=== PATIENT | female | born 1940 | race Caucasian/White ===

== ENCOUNTER 2016-05-10 06:08 | Day surgery (SDC) | payer MEDICARE ==
[~2016-05-10] VITALS: Ht 157.5 cm; Wt 55.5 kg
[~2016-05-10 06:08] MED LIST: BIOTIN5 MG PO; BUSPAR5 MG PO; BYSTOLIC5 MG PO; CALCIUM 500 + D1 TAB PO; DIOVAN HCT 320/1 TA2 PO; EFFEXOR75 MG PO; MAG-OX 400 MG400 MG PO; METAMUCIL1042 GM PO; OMEGA Q PLUS 100; POTASSIUM99 M1 PO; VITAMIN C500 MG/51 PO; [UNRECOGNIZED DRUG - OTHER]
[2016-05-10] MEDS ORDERED: BAYER CHEWABLE81 MG PO (07:19)
[2016-05-10] MEDS ORDERED: ULTRAM50 MG PO (07:20)
[2016-05-10 07:23] LABS: BASOPHILS 0.8 % (0.0-2.0); EOSINOPHILS 1.6 % (0-7); HEMATOCRIT 40.9 % (36.0-48.0); HEMOGLOBIN 14.2 g/dL (12-16); IMMATURE GRANULOCYTES 0.5 % (0-5); LYMPHOCYTES 21.6 % (15-50); MCHC 34.7 g/dL (31.0-37.0); MCV 95.1 fL (80.0-100.0); MEAN PLATELET VOLUME 10.6 fL (7.4-10.4); MONOCYTES 6.5 % (2-11); RDW 13.2 % (11.5-14.5); WBC 6.3 10x3/uL (4.8-10.8)
[2016-05-10 07:24] VITALS: BP 110/63; Ht 157.5 cm; Wt 55.5 kg
[2016-05-10 07:25] LABS: PLATELET COUNT 332 10x3/uL (130-400)
[2016-05-10 08:27] LABS: ANION GAP 15.5 mmol/L (8-16); CALCIUM 9.3 mg/dL (8.5-10.1); CARBON DIOXIDE 25.3 mmol/L (21.0-32.0); CREATININE - SERUM 0.9 mg/dL (0.6-1.3); POTASSIUM - SERUM 3.8 mmol/L (3.5-5.1)
--- NOTE | 2016-05-10 13:50 | NUR ---
1020 IV DC WITH CATHER TIP INTACT
--- NOTE | 2016-05-17 13:07 | OP ---
PATIENT NAME: SIENA DAI MEDICAL RECORD: [id number] :42 LOCATION:D.OPS ADMISSION DATE: SURGEON: QUIQUE CARRERA MD DATE OF OPERATION: 05/10/2016 PREOPERATIVE DIAGNOSIS: History of benign colon polyps with last colonoscopy over 5 years ago. POSTOPERATIVE DIAGNOSES: History of benign colon polyps with last colonoscopy over 5 years ago with normal examination today other than sigmoid diverticulosis. OPERATION PERFORMED: Colonoscopy to the cecum. SURGEON: Quique Carrera MD ANESTHESIA: TIVA per [employer]. REFERRING PHYSICIAN: Dr. Saavedra. PREOPERATIVE NOTE: Ms. Dai is a 75-year-old white female patient with history of benign colon polyps with a polyp removed at colonoscopy just over 5 years ago. She has no symptoms other than some constipation, but is returned to the GI lab today as an outpatient for a followup for screening colonoscopy. She has completed that 2-day MiraLax bowel prep. Under TIVA and lateral decubitus position, a digital rectal exam was performed. This was normal. There was no evidence of perianal sepsis or inflammation. No hemorrhoidal thrombosis or masses. The Olympus colonoscope was introduced and advanced through the colon, difficulty advancing the colon through the sigmoid due to spasm was at least partially alleviated by administration of 0.5 mg of glucagon intravenously. The patient was noted to have moderately severe sigmoid diverticulosis. The scope was advanced all the way to the cecum and slowly withdrawn without seeing any other lesions. The patient tolerated the procedure and TIVA well and was awakened and returned to the outpatient department. Ms. dai will be discharged later this morning. She will follow up in routine manner with Dr. Saavedra. She need not return to see me in the office unless there is a problem or concern. No biopsies were taken today. She will continue her home medications and her usual diet, which is a high fiber diet. I would recommend that she take a fiber supplement such as Benefiber 2-3 teaspoons daily. TRANSINT:[id number] Voice Confirmation ID: [id number] DOCUMENT ID: [id number] QUIQUE CARRERA MD at 1307 CC: PÉREZ SAAVEDRA MD [id number] DICTATION DATE: 05/10/16 0903 [facility]AT [place]: 05/10/16 0945 [facility] 05/10/16 [place] [id number] [place] [id number]
== END 2016-05-10 10:45 | disposition home or self-care (01) ==
LOC: D.OPS 06:08
PROVIDERS: Anesthesiology
DX: Z12.11 Encounter for screening for malignant neoplasm of colon (principal); K57.30 Diverticulosis of large intestine without perforation or abscess without bleeding; K59.00 Constipation, unspecified; Z86.010 Personal history of colon polyps

== ENCOUNTER 2017-11-06 13:48 | Emergency (ER) | payer MEDICARE ==
[~2017-11-06] VITALS: Ht 157.5 cm; Wt 50.0 kg
[~2017-11-06 13:48] MED LIST changes: +BAYER CHEWABLE81 MG PO; +ULTRAM50 MG PO
[2017-11-06 13:54] VITALS: Ht 157.5 cm; Wt 50.0 kg
[2017-11-06 14:17] LABS: BASOPHILS 0.5 % (0-2); EOSINOPHILS 0.5 % (0-7); HEMATOCRIT 39.4 % (36.0-48.0); HEMOGLOBIN 13.8 g/dL (12-16); IMMATURE GRANULOCYTES 0.3 % (0-5); LYMPHOCYTES 22.9 % (15-50); MCH 33.4 pg (26.0-34.0); MCV 95.4 fL (80.0-100.0); MEAN PLATELET VOLUME 9.9 fL (7.4-10.4); MONOCYTES 12.2 % (2-11); NEUTROPHILS 63.6 % (40-80); PLATELET COUNT 303 10x3/uL (130-400); RBC 4.13 10x6/uL (4.00-5.40); RDW 13.9 % (11.5-14.5); WBC 7.9 10x3/uL (4.8-10.8)
[2017-11-06 14:31] LABS: ALKALINE PHOSPHATASE 77 U/L (46-116); ALT (SGPT) 22 U/L (10-68); BILIRUBIN - TOTAL 0.42 mg/dL (0.2-1.3); CALC OSMOLALITY 269 mosm/kg (275-300); CALCIUM 8.8 mg/dL (8.5-10.1); CARBON DIOXIDE 26.9 mmol/L (21.0-32.0); CHLORIDE - SERUM 99 mmol/L (98-107); CREATININE - SERUM 0.7 mg/dL (0.6-1.3); GLUCOSE 100 mg/dL (74-106); POTASSIUM - SERUM 4.2 mmol/L (3.5-5.1); PROTEIN - SERUM 7.7 g/dL (6.4-8.2); SODIUM 135 mmol/L (136-145); UREA NITROGEN 13 mg/dL (7-18); eGFR NON AFRICAN AMERICAN 87 mL/min (90-120)
[2017-11-06 14:42] LABS: CREATINE KINASE 156 UL (21-215); TROPONIN-I < 0.017 ng/mL (0.000-0.060)
[2017-11-06 14:50] LABS: INR 1.06 (0.85-1.17); PROTIME 13.4 SECONDS (11.6-15.0)
[2017-11-06] MEDS ORDERED: NORVASC2.5 MG PO (15:11)
[2017-11-06 16:04] VITALS: BP 169/73
== END 2017-11-06 16:05 | disposition home or self-care (01) ==
LOC: D.ER 13:48
PROVIDERS: Emergency Medicine
DX: I10 Essential (primary) hypertension (principal); R11.0 Nausea; F17.200 Nicotine dependence, unspecified, uncomplicated

== ENCOUNTER 2020-09-25 10:46 | Inpatient (IN) | payer MEDICARE ==
[~2020-09-25] VITALS: Ht 157.5 cm; Wt 46.3 kg
[~2020-09-25 10:46] MED LIST changes: +NORVASC2.5 MG PO
[2020-09-25 11:32] LABS: BASOPHILS 0.4 % (0-2); EOSINOPHILS 0 % (0-7); HEMATOCRIT 47.8 % (36.0-48.0); HEMOGLOBIN 16.1 g/dL (12-16); LYMPHOCYTES 7.1 % (15-50); MCH 32.7 pg (26.0-34.0); MCHC 33.7 g/dL (31.0-37.0); MCV 96.9 fL (80.0-100.0); MONOCYTES 3.1 % (2-11); NEUTROPHILS 89.4 % (40-80); RBC 4.93 10x6/uL (4.00-5.40); RDW 14.4 % (11.5-14.5); WBC 18.9 10x3/uL (4.8-10.8)
[2020-09-25 11:35] LABS: PLATELET COUNT 462 10x3/uL (130-400)
[2020-09-25 11:50] LABS: ANION GAP 11.2 mmol/L (8-16); CALCIUM 10.3 mg/dL (8.5-10.1); CARBON DIOXIDE 34.4 mmol/L (21.0-32.0); CREATININE - SERUM 1.4 mg/dL (0.6-1.3); POTASSIUM - SERUM 4.6 mmol/L (3.5-5.1)
[2020-09-25 11:56] LABS: ALBUMIN 4.7 g/dL (3.4-5.0); BILIRUBIN - TOTAL 0.68 mg/dL (0.2-1.3); PROTEIN - SERUM 8.9 g/dL (6.4-8.2)
[2020-09-25 12:28] LABS: BILIRUBIN NEGATIVE (NEGATIVE); KETONE NEGATIVE (NEGATIVE); NITRITE NEGATIVE (NEGATIVE); UROBILINOGEN NORMAL mg/dL (< 2)
[2020-09-25 12:30] LABS: BACTERIA MODERATE HPF (NONE SEEN)
[2020-09-25] MEDS ORDERED: PROTONIX40 MG PO (18:45)
[2020-09-25] MEDS ORDERED: XANAX0.5 MG PO (18:47)
[2020-09-25 19:18] VITALS: BP 126/63; BMI 18.7
--- NOTE | 2020-09-25 19:45 | NUR ---
RECEIVED BEDSIDE REPORT. PT LAYING IN BED A&O X4. PIV TO LEFT FOREARM, PATENT AND INFUSING, NO REDNESS OR SWELLING. SCARS TO RIGHT CHEST. HYPOACTIVE BS X4 QUADS. PT ABLE TO AMBULATE WITH STAND BY ASSIST. EDUCATED ON CL AND NEEDS, VERBALIZED UNDERSTANDING. BED LOW, ALARM ON, CL IN REACH.
[2020-09-25 20:00] VITALS: BP 126/63
[2020-09-26] VITALS: BP 128/74
[2020-09-26 04:00] VITALS: BP 136/60
[2020-09-26 07:12] LABS: BASOPHILS 0.1 % (0-2); EOSINOPHILS 0.1 % (0-7); HEMATOCRIT 37.8 % (36.0-48.0); HEMOGLOBIN 12.5 g/dL (12-16); LYMPHOCYTES 7.7 % (15-50); MCH 31.8 pg (26.0-34.0); MCHC 33.1 g/dL (31.0-37.0); MCV 96.3 fL (80.0-100.0); MEAN PLATELET VOLUME 8.5 fL (7.4-10.4); MONOCYTES 4.6 % (2-11); NEUTROPHILS 87.5 % (40-80); PLATELET COUNT 333 10x3/uL (130-400); RBC 3.92 10x6/uL (4.00-5.40); RDW 14.1 % (11.5-14.5); WBC 19.4 10x3/uL (4.8-10.8)
[2020-09-26 07:26] LABS: BILIRUBIN - TOTAL 0.5 mg/dL (0.2-1.3); CALCIUM 8.1 mg/dL (8.5-10.1); CARBON DIOXIDE 30.7 mmol/L (21.0-32.0)
[2020-09-26 07:53] LABS: ALBUMIN 3.1 g/dL (3.4-5.0); ANION GAP 10.7 mmol/L (8-16); CREATININE - SERUM 0.9 mg/dL (0.6-1.3); POTASSIUM - SERUM 3.4 mmol/L (3.5-5.1); PROTEIN - SERUM 6.4 g/dL (6.4-8.2)
[2020-09-26 08:36] VITALS: BP 154/74
[2020-09-26 12:05] VITALS: BP 148/90
--- NOTE | 2020-09-26 13:31 | NUR ---
WAITING ON MEDS TO COMPLETE AM DOSES. UNABLE TO GET MEDS AT THIS TIME.
[2020-09-26 15:55] VITALS: BMI 18.6
[2020-09-26 17:04] VITALS: BP 162/92
--- NOTE | 2020-09-26 18:49 | NUR ---
TOLERATING CLD WITHOUT NAUSEA. REMAINS WITHOUT CHANGE FROM INITIAL SHIFT ASSESSMENT. CONT PLAN OF CARE
[2020-09-26 19:01] VITALS: Ht 157.5 cm; Wt 46.3 kg
[2020-09-26 20:00] VITALS: BP 165/91
--- NOTE | 2020-09-26 20:00 | NUR ---
ALERT RESTING IN BED DENIES PAIN OR NEEDS, SEE SHIFT ASSESSMENT, CALL LIGHT IN REACH
[2020-09-27] VITALS: BP 144/77
[2020-09-27 04:00] VITALS: BP 151/83
[2020-09-27 06:36] LABS: BASOPHILS 0.3 % (0-2); EOSINOPHILS 0.2 % (0-7); HEMATOCRIT 37.2 % (36.0-48.0); HEMOGLOBIN 12.2 g/dL (12-16); LYMPHOCYTES 7.4 % (15-50); MCH 31.6 pg (26.0-34.0); MCHC 32.9 g/dL (31.0-37.0); MCV 96.2 fL (80.0-100.0); MEAN PLATELET VOLUME 8.4 fL (7.4-10.4); MONOCYTES 6.4 % (2-11); NEUTROPHILS 85.7 % (40-80); PLATELET COUNT 317 10x3/uL (130-400); RBC 3.87 10x6/uL (4.00-5.40); RDW 13.9 % (11.5-14.5); WBC 17.5 10x3/uL (4.8-10.8)
[2020-09-27 07:11] LABS: ALBUMIN 2.9 g/dL (3.4-5.0); ALKALINE PHOSPHATASE 49 U/L (30-120); ALT (SGPT) 12 U/L (10-68); BILIRUBIN - TOTAL 0.44 mg/dL (0.2-1.3); CALCIUM 8.4 mg/dL (8.5-10.1); CARBON DIOXIDE 25.7 mmol/L (21.0-32.0); CHLORIDE - SERUM 99 mmol/L (98-107); GLUCOSE 91 mg/dL (74-106); POTASSIUM - SERUM 3.4 mmol/L (3.5-5.1); PROTEIN - SERUM 6.2 g/dL (6.4-8.2); SODIUM 133 mmol/L (136-145)
[2020-09-27 07:12] LABS: CALC OSMOLALITY 265 mosm/kg (275-300); CREATININE - SERUM 0.6 mg/dL (0.6-1.3); UREA NITROGEN 13 mg/dL (7-18); eGFR NON AFRICAN AMERICAN > 90 mL/min (90-120)
[2020-09-27 08:11] VITALS: BP 166/80
--- NOTE | 2020-09-27 10:39 | NUR ---
CATH PLACED FOR URINE.
--- NOTE | 2020-09-27 10:46 | NUR ---
PATIENT STATES WANTS TO LEAVE AND UNHAPPY WITH CARE SHE HAS RECEIVED AT [facility]. HAS ALREADY EATEN AND DOES NOT WANT TO STAY ANOTHER DAY TO HAVE XRAY SMALL BOWEL SERIES. CARLA EDDY MADE AWARE. STATES PATIENT CAN LEAVE IF SHE WANTS TO AND DO OUTPATIENT BUT UP TO ADMITTING. SPOKE WITH PATRICIO AGUIRRE WHO STATES SHE ISN'T COMFORTABLE DC PATIENT AT THIS TIME AND PATIENT HAS ILEUS. STATES WILL TALK TO DR BRUCE BUT IF PATIENT LEAVES AT THIS TIME WILL HAVE TO BE AMA.
--- NOTE | 2020-09-27 12:24 | NUR ---
PATIENT NPO FOR XRAY.
[2020-09-27 12:25] VITALS: BP 154/97
--- NOTE | 2020-09-27 17:19 | NUR ---
PATIENT STILL WORKING WITH XRAY. FLUIDS MOVING THROUGH SLOWLY PER XRAY.
--- NOTE | 2020-09-27 19:45 | NUR ---
RECEIVED BEDSIDE REPORT. PT LAYING IN BED A&O X4. PIV TO LEFT FA, PATENTA AND INFUSING, NO REDNESS OR SWELLING. PT ABLE TO AMBULATE AD YUMIKO. EDUCATED PT ON CL AND NEEDS, VERBALIZED UNDERSTANDING. BED LOW, CL IN REACH.
[2020-09-27 20:00] VITALS: BP 153/87
[2020-09-28 04:00] VITALS: BP 145/68
[2020-09-28 06:23] LABS: BASOPHILS 0.3 % (0-2); EOSINOPHILS 0.3 % (0-7); HEMATOCRIT 37.8 % (36.0-48.0); HEMOGLOBIN 12.6 g/dL (12-16); LYMPHOCYTES 7.7 % (15-50); MCH 31.9 pg (26.0-34.0); MCHC 33.2 g/dL (31.0-37.0); MEAN PLATELET VOLUME 8.4 fL (7.4-10.4); NEUTROPHILS 82.7 % (40-80); PLATELET COUNT 324 10x3/uL (130-400); RBC 3.94 10x6/uL (4.00-5.40); RDW 13.7 % (11.5-14.5); WBC 16.7 10x3/uL (4.8-10.8)
[2020-09-28 06:36] LABS: CALC OSMOLALITY 262 mosm/kg (275-300); CALCIUM 8.5 mg/dL (8.5-10.1); CARBON DIOXIDE 28.5 mmol/L (21.0-32.0); CHLORIDE - SERUM 96 mmol/L (98-107); CREATININE - SERUM 0.6 mg/dL (0.6-1.3); GLUCOSE 97 mg/dL (74-106); POTASSIUM - SERUM 3.2 mmol/L (3.5-5.1); SODIUM 131 mmol/L (136-145); UREA NITROGEN 13 mg/dL (7-18); eGFR NON AFRICAN AMERICAN > 90 mL/min (90-120)
--- NOTE | 2020-09-28 07:35 | NUR ---
ALERT AND ORIENTED. ASSESSMENT COMPLETE. DENIES NEEDS. BED LOW. CALL CARRILLO AND PERSONAL ITEMS IN REACH. WILL CONTINUE TO MONITOR.
--- NOTE | 2020-09-28 09:49 | NUR ---
PATIENT STATES NEEDS TO BE DC TODAY BEFORE 1100 OR WON'T HAVE RIDE HOME. PAGED DR BRUCE.
[2020-09-28 09:52] VITALS: BP 157/75
--- NOTE | 2020-09-28 09:53 | NUR ---
SPOKE WITH DR BRUCE WHO STATES WILL PLACE DC. FOLLOW UP APPOINTMENT SET UP FOR PATIENT.
--- NOTE | 2020-09-28 10:15 | NUR ---
DR BRUCE ON FLOOR AND STATES PLACING DC ORDERS NOW. IV REMOVED FROM PATIENT'S LFA. PATIENT'S RIDE CALLED BY PATIENT. TOLD PATIENT WILL DO PAPERWORK SOON ORDER IS IN.
[2020-09-28] MEDS ORDERED: KLOR-CON M2020 MEQ PO (10:28)
[2020-09-28] MEDS ORDERED: LEVOFLOXACIN500 MG PO (10:28)
--- NOTE | 2020-09-28 10:48 | NUR ---
DC EDUCATION PROVIDED BOTH WRITTEN AND VERBAL. VERBALIZED UNDERSTANDING. DENIES FURTHER QUESTIONS OR CONCERNS. RIDE EN ROUTE TO HOSPITAL.
--- NOTE | 2020-09-28 11:02 | NUR ---
PATIENT DC HOME WITH NEIGHBOR WITH ALL BELONGINGS. REQUESTED TO WALK OUT. DOESN'T WANT WHEELCHAIR.
== END 2020-09-28 12:41 | disposition home or self-care (01) | DRG 388 ==
LOC: D.ER 10:46 → D.MS 15:52
PROVIDERS: Legal Medicine; Student in an Organized Health Care Education/Training Program; ADMIT Emergency Medicine; ATTEND Emergency Medicine
DX: K56.7 Ileus, unspecified (principal); J18.9 Pneumonia, unspecified organism; N39.0 Urinary tract infection, site not specified; I10 Essential (primary) hypertension; R91.8 Other nonspecific abnormal finding of lung field; E87.6 Hypokalemia